=== PATIENT | female | born 1965 | race Caucasian/White ===

== ENCOUNTER 2020-03-06 15:14 | Outpatient (REF) | payer OTHER, SELFPAY ==
[2020-03-06 16:29] LABS: MANUAL DIFF FLAG NO
[2020-03-06 16:30] LABS: Basophils Absolute Auto 0.1 X10*3/uL (0.0-0.2); Basophils Percent Auto 1.2 % (0-2); Eosinophils Absolute Auto 0.4 X10*3/uL (0.0-0.4); Eosinophils Percent Auto 6.1 % (0-4); Hematocrit 45.8 % (37-47); Hemoglobin 15.1 g/dl (12.0-16.0); Imm Gran Abs Auto 0.02 X10*3/uL (0.00-0.03); Imm Gran Pct Auto 0.3 % (0.0-0.4); Lymphocytes Absolute Auto 1.4 X10*3/uL (1.2-4.9); Lymphocytes Percent Auto 23.8 % (20-40); Mean Corpuscular Hemoglobin 28.7 pg (27.0-33.0); Mean Corpuscular Volume 87.1 fL (80-98); Mean Platelet Volume 10.5 fL (9.4-12.3); Monocytes Absolute Auto 0.5 X10*3/uL (0.1-1.2); Monocytes Percent Auto 8.8 % (2-11); Neutrophils Absolute Auto 3.5 X10*3/uL (2.0-8.3); Neutrophils Percent Auto 59.8 % (45-73); Platelet Count 247 X10*3/uL (160-400); Red Blood Count 5.26 X10*6/uL (4.20-5.50); Red Cell Distribution Width 12.8 % (11.0-16.0); White Blood Count 5.9 X10*3/uL (4.8-10.8)
[2020-03-06 16:50] LABS: Alanine Aminotransferase 29 U/L (0-31); Albumin Level 4.7 g/dL (3.5-5.0); Alkaline Phosphatase 90 U/L (39-117); Anion Gap 11 (12-20); Aspartate Amino Transferase 23 U/L (5-31); Bilirubin Direct 0.3 mg/dL (0.0-0.5); Bilirubin Total 0.8 mg/dL (0.0-1.0); Blood Urea Nitrogen 15 mg/dL (9-16); Calcium 9.6 mg/dL (8.4-10.2); Carbon Dioxide 32 mmol/L (22-29); Chloride 102 mmol/L (96-108); Cholesterol 206 mg/dL; Estimated Glomerular Filt Rate > 60; Glucose Fasting 88 mg/dL (60-99); HDL Cholesterol 77 mg/dL; LDL Cholesterol Calculated 117 mg/dl; Potassium 4.3 mmol/l (3.3-5.1); Sodium 141 mmol/L (135-145); Total Protein 7.4 g/dL (6.5-8.0); Triglycerides 61 mg/dL
[2020-03-06 16:56] LABS: Amphetamine Screen Urine Not Detected (Not Detect); Barbiturates, Urine Not Detected (Not Detect); Benzodiazepines Screen Urine Not Detected (Not Detect); Cannabinoid Screen Urine Not Detected (Not Detect); Cocaine Screen Urine Not Detected (Not Detect); Opiate Screen Urine Not Detected (Not Detect); Phencyclidine Screen Urine Not Detected (Not Detect)
[2020-03-06 17:10] LABS: TSH reflex Free T4 0.76 mIU/mL (0.32-4.0)
== END 2020-03-06 15:15 | disposition home or self-care (01) ==
LOC: HO.HMGCLDS 15:14
PROVIDERS: PCP Internal Medicine; Visit Provider Internal Medicine
DX: B00.1 Herpesviral vesicular dermatitis (principal); F33.9 Major depressive disorder, recurrent, unspecified; G89.29 Other chronic pain; M54.5 Low back pain
CPT/HCPCS: 80048; 80061; 80076; 80307; 84443; 85025

== ENCOUNTER 2021-01-14 13:13 | Outpatient (REF) | payer OTHER, SELFPAY ==
[2021-01-14 14:13] LABS: MANUAL DIFF FLAG NO
[2021-01-14 14:17] LABS: Basophils Percent Auto 0.8 % (0-2); Eosinophils Absolute Auto 0.1 X10*3/uL (0.0-0.4); Eosinophils Percent Auto 2.9 % (0-4); Hematocrit 42.3 % (37.0-47.0); Hemoglobin 14.4 g/dl (12.0-16.0); Imm Gran Abs Auto 0.01 X10*3/uL (0.00-0.03); Imm Gran Pct Auto 0.2 % (0.0-0.4); Lymphocytes Absolute Auto 1.4 X10*3/uL (1.2-4.9); Mean Corpuscular Hemoglobin 29.1 pg (27.0-33.0); Mean Corpuscular Volume 85.6 fL (80.0-98.0); Mean Platelet Volume 10.7 fL (9.4-12.3); Monocytes Absolute Auto 0.5 X10*3/uL (0.1-1.2); Monocytes Percent Auto 10.3 % (2-11); Neutrophils Absolute Auto 2.8 x10*3/uL (2.0-8.3); Neutrophils Percent Auto 56.8 % (45-73); Platelet Count 251 X10*3/uL (160-400); Red Blood Count 4.94 X10*6/uL (4.20-5.50); Red Cell Distribution Width 12.6 % (11.0-16.0); White Blood Count 4.9 X10*3/uL (4.8-10.8)
[2021-01-14 14:52] LABS: Alanine Aminotransferase 33 U/L (0-31); Albumin Level 4.5 g/dL (3.5-5.0); Alkaline Phosphatase 92 U/L (39-117); Anion Gap 14 (12-20); Aspartate Amino Transferase 24 U/L (5-31); Bilirubin Total 0.7 mg/dL (0.0-1.0); Blood Urea Nitrogen 17 mg/dL (9-16); Calcium 9.7 mg/dL (8.4-10.2); Carbon Dioxide 26 mmol/L (22-29); Chloride 104 mmol/L (96-108); Cholesterol 221 mg/dL; Estimated Glomerular Filt Rate > 60; Glucose Fasting 87 mg/dL (60-99); HDL Cholesterol 64 mg/dL; LDL Cholesterol Calculated 144 mg/dl; Potassium 4.1 mmol/L (3.3-5.1); Sodium 140 mmol/L (135-145); Total Protein 7.2 g/dL (6.5-8.0); Triglycerides 67 mg/dL
[2021-01-14 15:14] LABS: TSH reflex Free T4 0.73 uIU/mL (0.32-4.0)
[2021-01-18 12:11] LABS: Vitamin D 25-OH, D2 <4 ng/mL; Vitamin D 25-OH, D3 56 ng/mL; Vitamin D 25-OH, Total 56 ng/mL (30-100)
== END 2021-01-14 13:14 | disposition home or self-care (01) ==
LOC: HO.HMGCLDS 13:13
PROVIDERS: PCP Internal Medicine; Visit Provider Internal Medicine
DX: Z00.01 Encounter for general adult medical examination with abnormal findings (principal); B00.1 Herpesviral vesicular dermatitis; F33.9 Major depressive disorder, recurrent, unspecified; F41.1 Generalized anxiety disorder; M54.50 Low back pain, unspecified
CPT/HCPCS: 36415; 80053; 80061; 82306; 84443; 85025

== ENCOUNTER 2022-02-03 15:38 | Outpatient (REF) | payer BC, SELFPAY ==
[2022-02-06 01:54] LABS: HPV mRNA E6/E7 rflx Not Detected (Not Detected)
== END 2022-02-03 15:39 | disposition home or self-care (01) ==
LOC: HO.LNP 15:38
PROVIDERS: Visit Provider Advanced Practice Midwife
DX: Z01.419 Encounter for gynecological examination (general) (routine) without abnormal findings (principal)
CPT/HCPCS: 87624; 88142

== ENCOUNTER 2022-08-21 10:31 | Outpatient (REF) | payer BC, SELFPAY | END 2022-08-21 10:32 | disposition home or self-care (01) | LOC: HO.HMGCLDS 10:31 | PROVIDERS: PCP Internal Medicine; Visit Provider Internal Medicine | DX: Z00.01 Encounter for general adult medical examination with abnormal findings (principal); F33.9 Major depressive disorder, recurrent, unspecified; M54.50 Low back pain, unspecified; G89.29 Other chronic pain; M62.830 Muscle spasm of back; F41.1 Generalized anxiety disorder | CPT/HCPCS: 36415; 80053; 80061; 85025 ==

== ENCOUNTER 2022-10-20 15:42 | Outpatient (AMB) | payer BC, SELFPAY ==
--- NOTE | 2022-10-20 15:45 | A.OFFPC_ITS ---
Vital Signs 10/20/22 15:46 Height 5 ft 6 in Weight 144 lb BMI 23.2 BP 140/100 H Blood Pressure Location Rt brachial Position Sitting Pulse 72 Pulse Source Pulse Oximeter Pulse Oximetry (%) 98 Oxygen Delivery Method Room Air Intake Visit Reasons: 3m follow up med review Allergies Penicillins [PENICILLINS] Allergy (Mild, Verified 10/20/22 15:46) Unknown penicillin V Allergy (Unknown, Verified 10/20/22 15:46) unknown - childhood Medication List - Last Reconciled 10/20/22 by Aldair Sanchez MD ferrous sulfate (Feosol) 325 mg PO DAILY tramadol 50 mg PO Q6H 90 days valacyclovir 500 mg PO DAILY Tobacco use date assessed: 08/04/22 HPI 3m follow up med review HPI Details Patient is 57-year-old female came in today for her regular follow-up appointment Patient's depression screening score is very high She says that she feels more anxious than depressed she has tried few medications which had helped her but she stopped them because of side effects I am starting her on buspirone 5 mg patient may take that as needed if she is struggling with her day due to anxiety Up but ideally patient should see a specialist for her depression and anxiety as well. Patient is on tramadol 50 mg q.6 for chronic lumbar pain. Patient is doing well and complying with the treatment plan. Patient have valacyclovir script for cold sore and herpes genitalia but really uses it Her blood pressure is 140/100 I see that it was high January of last year as well. Patient is reluctant to start the medication She has blood pressure monitor at home she will start monitoring, and if it gives most of the readings above 140 patient is to let me know so we can start medication Otherwise bring the blood pressure monitor from home as well as blood pressure log at her upcoming visit in January when she will come for physical exam. She is taking iron supplement on her own however I do not see any deficiency signs in the labs her hemoglobin is normal. [facility] Medical History Anxiety, generalized Back muscle spasm Back pain Chronic lumbar pain Depression, major, recurrent Herpes labialis Pain management Surgical History History of breast augmentation Family History Father No problems noted. Mother Breast cancer Maternal Grandfather Diabetes mellitus Maternal Grandmother No problems noted. Paternal Grandfather No problems noted. Paternal Grandmother No problems noted. Brother No problems noted. Brother No problems noted. Brother No problems noted. Brother No problems noted. Daughter No problems noted. Maternal Aunt Breast cancer Other Mental health disorder Substance use disorder Social History Housing: House Patient Tobacco Use Status: Never used Tobacco e-Cigarette/Vaping Use: Never Used service: No Current occupational status: employed Cognitive needs: No Hearing needs: No Vision needs: Yes Female Reproductive History Menstrual Age of Menarche: 14 Questionnaire PHQ-9 Over the last 2 weeks, how often have you been bothered by any of the following problems? 1. Little interest or pleasure in doing things: more than half the days 2. Feeling down, depressed, or hopeless: more than half the days 3. Trouble falling or staying asleep, or sleeping too much: more than half the days 4. Feeling tired or having little energy: nearly every day 5. Poor appetite or overeating: more than half the days 6. Feeling bad about yourself - or that you are a failure or have let yourself or your family down: not at all 7. Trouble concentrating on things, such as reading the newspaper or watching television: several days 8. Moving or speaking so slowly that other people could have noticed. Or the opposite - being so fidgety or restless that you have been moving around a lot more than usual: not at all 9. Thoughts that you would be better off or of hurting yourself in some way: not at all Total score: 12 Depression Screening Interpretation: Positive 10265 - PHQ-9 Billing: Yes Source: Developed by Drs. Andrea Bernstein, Marilee Robles, Adriel Meyer and colleagues, with an educational lisa from [employer]. Thrive Questionnaire Date Thrive assessed: 01/22/22 I am a: Patient What is your living situation today?: I have a steady place to live Within the past 12 months, did the food you bought not last and you didn't have the money to get more?: Sometimes True Within the past 12 months, did you worry whether your food would run out before you got money to buy more?: Sometimes True AUDIT C Alcohol Use Questionnaire (AUDIT-C) 1. How often do you have a drink containing alcohol?: Never 3. How often do you have six or more drinks on one occasion?: Never Total Score: 0 RAFFAELE-7 AMB Questionnaire RAFFAELE-7 Date RAFFAELE - 7 assessed: 08/04/22 Feeling nervous, anxious, or on edge: 3 = Nearly every day Not being able to stop or control worryin = More than half the days Worrying too much about different things: 2 = More than half the days Trouble relaxin = More than half the days Being so restless that it is hard to sit still: 0 = Not at all Becoming easily annoyed or irritable: 2 = More than half the days Feeling afraid as if something awful might happen: 0 = Not at all Total RAFFAELE-7 score (0-4 normal; 5-9 mild; 10-14 moderate; 15-21 severe): 11 Source: Developed by Drs. Andrea Bernstein, Marilee Robles, Adriel Meyer and colleagues, with an educational lisa from [employer]. Review of Systems Const Denies chills and Denies fever(s) ENT Denies epistaxis and Denies nasal discharge Card Denies chest pain Resp Denies chest congestion, Denies cough and Denies hemoptysis GI Denies diarrhea and Denies nausea Skin/Breast Denies rash Neuro Reports no additional complaints Psych Reports no additional complaints Endo Reports no additional complaints Physical exam (Primary Care) Vital Signs: Last Vital Signs Pulse 72 10/20/22 15:46 BP 140/100 H 10/20/22 15:46 Pulse Ox 98 10/20/22 15:46 Oxygen Delivery Method Room Air 10/20/22 15:46 BMI result Body Mass Index 23.2 Tobacco/Smoking Status: Tobacco use Status Tobacco use date assessed 08/04/22 10/20/22 15:46 Patient Tobacco Use Status Never used Tobacco 10/20/22 15:46 e-Cigarette/Vaping Use Never Used 10/20/22 15:46 Depression Screening Interpretation: Positive Thrive Assessment: Date of Thrive Assessment Date Thrive assessed 01/22/22 10/20/22 15:46 Const General: cooperative, comfortable and no acute distress Orientation/consciousness: patient oriented x3 HENMT Head: Yes normocephalic Eyes General: appearance normal, both eyes and all related structures Neck Neck: Yes supple Resp Effort & Inspection: normal respiratory effort, no cough and no stridor Cardio Rhythm: regular rhythm Heart sounds: S1 normal heart sound present and S2 normal heart sound present Skin General skin exam: turgor normal Neuro General: patient oriented x3, tone normal and moves all extremities Extrem Right lower extremity: no edema Left lower extremity: no edema Assessment and Plan Assessment & Plan (1) Chronic lumbar pain: Code(s): M54.5 - Low back pain; G89.29 - Other chronic pain Qualifiers: Back pain laterality: bilateral Sciatica presence: without sciatica Qualified Code(s): M54.50 - Low back pain, unspecified; G89.29 - Other chronic pain (2) Anxiety, generalized: Code(s): F41.1 - Generalized anxiety disorder (3) Herpes labialis: Code(s): B00.1 - Herpesviral vesicular dermatitis (4) Depression, major, recurrent: Code(s): F33.9 - Major depressive disorder, recurrent, unspecified Qualifiers: Active/Remission status: currently active Major depression episode severity: moderate Qualified Code(s): F33.1 - Major depressive disorder, recurrent, moderate (5) Pain management: Code(s): R52 - Pain, unspecified (6) Elevated blood pressure reading: Code(s): R03.0 - Elevated blood-pressure reading, without diagnosis of hypertension Plan Patient is 57-year-old female came in today for her regular follow-up appointment Patient's depression screening score is very high She says that she feels more anxious than depressed she has tried few medications which had helped her but she stopped them because of side effects I am starting her on buspirone 5 mg patient may take that as needed if she is struggling with her day due to anxiety Up but ideally patient should see a specialist for her depression and anxiety as well. Patient is on tramadol 50 mg q.6 for chronic lumbar pain. Patient is doing well and complying with the treatment plan. Patient have valacyclovir script for cold sore and herpes genitalia but really uses it Her blood pressure is 140/100 I see that it was high January of last year as well. Patient is reluctant to start the medication She has blood pressure monitor at home she will start monitoring, and if it gives most of the readings above 140 patient is to let me know so we can start medication Otherwise bring the blood pressure monitor from home as well as blood pressure log at her upcoming visit in January when she will come for physical exam. She is taking iron supplement on her own however I do not see any deficiency signs in the labs her hemoglobin is normal. Medications: New buspirone 5 mg PO .q am 30 days PRN 30 tabs 0RF anxiety Refilled tramadol 50 mg PO Q6H 90 days 360 tabs 0RF Coding Level of Care Code Est Pt Level 4 (56083) Diagnoses Chronic lumbar pain M54.50; G89.29 Back pain laterality: bilateral Sciatica presence: without sciatica Anxiety, generalized F41.1 Herpes labialis B00.1 Depression, major, recurrent F33.1 Active/Remission status: currently active Major depression episode severity: moderate Pain management R52 Elevated blood pressure reading R03.0
[2022-10-20 15:46] VITALS: BP 140/100; PULSE 72; O2SAT 98; BMI 23.2
== END 2022-10-20 16:13 | disposition home or self-care (01) ==
PROVIDERS: PCP Internal Medicine; Visit Provider Internal Medicine
DX: M54.50 Low back pain, unspecified (principal); F33.1 Major depressive disorder, recurrent, moderate; F41.1 Generalized anxiety disorder; B00.1 Herpesviral vesicular dermatitis; R03.0 Elevated blood-pressure reading, without diagnosis of hypertension
CPT/HCPCS: 99214

== ENCOUNTER 2023-01-28 14:13 | Outpatient (AMB) | payer BC, SELFPAY ==
--- NOTE | 2023-01-28 14:28 | A.OFFPC_ITS ---
Vital Signs 01/28/23 14:29 Height 5 ft 6 in Weight 143 lb BMI 23.1 BP 120/82 Blood Pressure Location Rt brachial Position Sitting Pulse 88 Pulse Source Pulse Oximeter Pulse Oximetry (%) 96 Oxygen Delivery Method Room Air Intake Visit Reasons: Annual PE Allergies Penicillins [PENICILLINS] Allergy (Mild, Verified 01/28/23 14:30) Unknown penicillin V Allergy (Unknown, Verified 01/28/23 14:30) unknown - childhood Medication List - Last Reconciled 01/28/23 by Aldair Sanchez MD buspirone 5 mg PO .q am PRN 30 days ferrous sulfate (Feosol) 325 mg PO DAILY tramadol 50 mg PO Q6H 90 days valacyclovir 500 mg PO DAILY Tobacco use date assessed: 01/28/23 Dental Screening Dental Screen Date: 01/28/23 Did you have a dental visit in the last 12 months?: No Was dental information given to patient?: No HPI Annual PE HPI Details Patient is a 57-year-old female came in today for physical examination Patient have OBGYN, last appointment was January of last year patient says that she has appointment in spring Does not want mammogram Does not want a colonoscopy Breast exam declined today Patient would like to skip blood work this visit Tramadol refill sent [facility] Medical History Pain management Depression, major, recurrent Back muscle spasm Chronic lumbar pain Herpes labialis Anxiety, generalized Back pain Surgical History History of breast augmentation Family History Father No problems noted. Mother Breast cancer Maternal Grandfather Diabetes mellitus Maternal Grandmother No problems noted. Paternal Grandfather No problems noted. Paternal Grandmother No problems noted. Brother No problems noted. Brother No problems noted. Brother No problems noted. Brother No problems noted. Daughter No problems noted. Maternal Aunt Breast cancer Other Mental health disorder Substance use disorder Social History Housing: House Patient Tobacco Use Status: Never used Tobacco e-Cigarette/Vaping Use: Never Used service: No Current occupational status: employed Cognitive needs: No Hearing needs: No Vision needs: Yes Female Reproductive History Menstrual Age of Menarche: 14 Questionnaire PHQ-9 Over the last 2 weeks, how often have you been bothered by any of the following problems? 1. Little interest or pleasure in doing things: not at all 2. Feeling down, depressed, or hopeless: not at all 3. Trouble falling or staying asleep, or sleeping too much: not at all 4. Feeling tired or having little energy: not at all 5. Poor appetite or overeating: not at all 6. Feeling bad about yourself - or that you are a failure or have let yourself or your family down: not at all 7. Trouble concentrating on things, such as reading the newspaper or watching television: not at all 8. Moving or speaking so slowly that other people could have noticed. Or the opposite - being so fidgety or restless that you have been moving around a lot more than usual: not at all 9. Thoughts that you would be better off or of hurting yourself in some way: not at all Total score: 0 Depression Screening Interpretation: Negative Depression Screening Done: Yes 57232 - PHQ-9 Billing: Yes Source: Developed by Drs. Andrea Bernstein, Marilee Robles, Adriel Meyer and colleagues, with an educational lisa from [employer]. Thrive Questionnaire Date Thrive assessed: 01/28/23 I am a: Patient What is your living situation today?: I have a steady place to live Within the past 12 months, did the food you bought not last and you didn't have the money to get more?: Never true Within the past 12 months, did you worry whether your food would run out before you got money to buy more?: Never true Do you have trouble paying for medicines?: No Do you have trouble getting transportation to medical appointments?: No Do you have trouble paying your heating and electricity bill?: No Do you have trouble taking care of your child, family member or friend?: No Do you have trouble with day-to-day activities such as bathing, preparing meals, shopping, managing finances, etc.?: No Are you currently unemployed and looking for a job?: No Are you interested in more education?: No Please select the resources that you would like help with: None Currently or been in a relationship where the following occur: no concerns reported AUDIT C Alcohol Use Questionnaire (AUDIT-C) 1. How often do you have a drink containing alcohol?: Never Total Score: 0 RAFFAELE-7 AMB Questionnaire RAFFAELE-7 Date RAFFAELE - 7 assessed: 01/28/23 Feeling nervous, anxious, or on edge: 0 = Not at all Not being able to stop or control worryin = Not at all Worrying too much about different things: 0 = Not at all Trouble relaxin = Not at all Being so restless that it is hard to sit still: 0 = Not at all Becoming easily annoyed or irritable: 0 = Not at all Feeling afraid as if something awful might happen: 0 = Not at all Total RAFFAELE-7 score (0-4 normal; 5-9 mild; 10-14 moderate; 15-21 severe): 0 Source: Developed by Drs. Andrea Bernstein, Marilee Robles, Adriel Meyer and colleagues, with an educational lisa from [employer]. RAFFAELE-7 Assessment Billing RAFFAELE-7 Assessment Tool: RAFFAELE-7 Assessment 54055 Review of Systems Const Denies chills, Denies fever(s) and Denies headache(s) Eyes Denies blurry vision ENT Denies headache(s), Denies nasal discharge, Denies nasal obstruction, Denies odynophagia and Denies sinus pain Card Denies chest pain at rest and Denies chest pain with activity Resp Denies cough and Denies hemoptysis GI Denies diarrhea, Denies odynophagia, Denies vomiting and Denies hematemesis Reports as per HPI Musc Denies abnormal gait Skin/Breast Reports as per HPI Neuro Denies Neuro-related abnormal movements, Denies Abnormal speech present, Denies abnormal gait, Denies headache(s) and Denies Sensory deficit (Neuro) Psych Denies mood swings and Denies paranoia Endo Reports as per HPI Markus/Lymph Reports as per HPI Aller/Immun Reports as per HPI Physical exam (Primary Care) Vital Signs: Last Vital Signs Pulse 88 01/28/23 14:29 BP 120/82 01/28/23 14:29 Pulse Ox 96 01/28/23 14:29 Oxygen Delivery Method Room Air 01/28/23 14:29 BMI result Body Mass Index 23.1 Tobacco/Smoking Status: Tobacco use Status Tobacco use date assessed 01/28/23 01/28/23 14:30 Patient Tobacco Use Status Never used Tobacco 01/28/23 14:30 e-Cigarette/Vaping Use Never Used 01/28/23 14:30 PHQ-9: PHQ-9 Score PHQ-9: Total score 0 01/28/23 14:55 Depression Screening Interpretation: Negative Thrive Assessment: Date of Thrive Assessment Date Thrive assessed 01/28/23 01/28/23 14:33 Currently or been in a relationship where the following occur: no concerns reported Const General: cooperative, comfortable and no acute distress Orientation/consciousness: patient oriented x3 HENMT Head: Yes normocephalic and Yes atraumatic Eyes General: appearance normal, both eyes and all related structures Pupils: Equal, round and reactive pupils present EOM: EOMs intact bilaterally Neck Neck: Yes supple and No lymphadenopathy Thyroid: Thyroid normal Lymphatic: no lymphadenopathy noted Resp Effort & Inspection: normal respiratory effort and able to speak in complete sentences Auscultation: clear to auscultation bilaterally Cardio Heart sounds: S1 normal heart sound present and S2 normal heart sound present GI Palpation (GI): Soft to palpation and nontender Auscultation: normal bowel sounds General: Yes no CVA tenderness Back/Spine/Pelvis Back: no CVA tenderness Skin General skin exam: elasticity normal and turgor normal Neuro General: patient oriented x3 and gait normal Cranial nerves: Yes Equal, round and reactive pupils present Speech: No Abnormal speech present Sensory Exam: No Sensory deficit (Neuro) Coordination: tandem gait normal and Romberg test negative Extrem General: Yes normal exam except as noted and No edema Office Procedures Flu Questionnaire Does the patient have a severe egg allergy?: No Does the patient have severe life threatening allergies?: No Does the patient have a fever or illness today?: No Has the patient ever had Guillain-[place] Syndrome?: No Has the patient ever had any past reaction to a flu shot?: No Immunizations flu vacc [id number] 6mos up(PF) 60 mcg(15 mcgx4)/0.5 mL IM syringe Performing Provider: Aldair Sanchez MD Performing Location: [facility] [place] [facility] Administered by: Allan Vasques CMA on 01/28/23 14:55 Dose Route Admin Location Dispensed Lot Number Expiration Date NDC Seasonal Driver 0.5 mL IM Left Deltoid 0.5 mL [id number] 08/21/23 [id number] [employer] VIS Given Date VIS Provided VIS Publication Date 01/28/23 Single Vaccine 20 Eligibility Eligibility Date Funding Source Not [facility] Eligible 01/28/23 Private Assessment and Plan Assessment & Plan (1) Encounter for general adult medical examination with abnormal findings: Code(s): Z00.01 - Encounter for general adult medical examination with abnormal findings (2) Moderate tramadol dependence: Code(s): F11.20 - Opioid dependence, uncomplicated (3) Pain management: Code(s): R52 - Pain, unspecified (4) Chronic lumbar pain: Code(s): M54.5 - Low back pain; G89.29 - Other chronic pain Qualifiers: Back pain laterality: bilateral Sciatica presence: without sciatica Qualified Code(s): M54.50 - Low back pain, unspecified; G89.29 - Other chronic pain (5) Herpes labialis: Code(s): B00.1 - Herpesviral vesicular dermatitis (6) Colonoscopy refused: Code(s): Z53.20 - Procedure and treatment not carried out because of patient's decision for unspecified reasons Plan Patient is a 57-year-old female came in today for physical examination Patient have OBGYN, last appointment was January of last year patient says that she has appointment in spring Does not want mammogram Does not want a colonoscopy Breast exam declined today Patient would like to skip blood work this visit Tramadol refill sent Orders: Orders Influenza [id number] Immunization Today Z23 - Encounter for immunization Medications: Refilled tramadol 50 mg PO Q6H 360 tabs 0RF 90 days Coding Level of Care Code Est Pt Prev Care 40-64y(85716) Diagnoses Encounter for general adult medical examination with abnormal findings Z00.01 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 Pain management R52 Chronic bilateral low back pain without sciatica M54.50; G89.29 Back pain laterality: bilateral Sciatica presence: without sciatica Herpes labialis B00.1 Colonoscopy refused Z53.20 Additional Codes RAFFAELE-7 Assessment Billing - RAFFAELE-7 Assessment Tool: RAFFAELE-7 Assessment [id number] ([id number])
[2023-01-28 14:29] VITALS: BP 120/82; PULSE 88; O2SAT 96; BMI 23.1
== END 2023-01-28 15:04 | disposition home or self-care (01) ==
PROVIDERS: Visit Provider Internal Medicine
DX: Z00.00 Encounter for general adult medical examination without abnormal findings (principal); F11.20 Opioid dependence, uncomplicated; Z23 Encounter for immunization; M54.50 Low back pain, unspecified; G89.29 Other chronic pain; B00.1 Herpesviral vesicular dermatitis; Z53.20 Procedure and treatment not carried out because of patient's decision for unspecified reasons
CPT/HCPCS: 90471; 90686; 99396

== ENCOUNTER 2023-05-12 08:41 | Outpatient (AMB) | payer BC, SELFPAY ==
--- NOTE | 2023-05-12 09:49 | MHC.PC.OV ---
Intake Visit Reasons: 3 mth follow up Allergies Penicillins [PENICILLINS] Allergy (Mild, Verified 01/28/23 14:30) Unknown penicillin V Allergy (Unknown, Verified 01/28/23 14:30) unknown - childhood Medication List - Last Reconciled 05/12/23 by Aldair Sanchez MD buspirone 5 mg PO .q am PRN 30 days ferrous sulfate (Feosol) 325 mg PO DAILY tramadol 50 mg PO Q6H 90 days valacyclovir 500 mg PO DAILY Tobacco use date assessed: 01/28/23 HPI 3 mth follow up HPI Details Patient is a 57-year-old female with a history of lumbar radiculitis, this is a telemedicine video conference Patient usually get tramadol 360 tablets every 90 days, she is taking 1 tablet every 6 hour as needed And for anxiety buspirone, both medication refill sent 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 For the past few days she has developed pain lower back and left hip which is causing problem with sleep at night as well. Patient already have a disc protrusion lumbar area, and in October she did some weakness exercises doing squatting and some weightlifting. At that time she did not had any problem . I have ordered x-ray of her lumbar spine and hip. Meanwhile I would recommend to get a computer table and stand up part of the time while she is working or standing. If symptoms gets worse patient is to get in touch with me There are no bowel or bladder issues. But left leg paresthesias is there. [facility] Medical History Pain management Depression, major, recurrent Back muscle spasm Chronic lumbar pain Herpes labialis Anxiety, generalized Back pain Surgical History History of breast augmentation Family History Father No problems noted. Mother Breast cancer Maternal Grandfather Diabetes mellitus Maternal Grandmother No problems noted. Paternal Grandfather No problems noted. Paternal Grandmother No problems noted. Brother No problems noted. Brother No problems noted. Brother No problems noted. Brother No problems noted. Daughter No problems noted. Maternal Aunt Breast cancer Other Mental health disorder Substance use disorder Social History Housing: House Patient Tobacco Use Status: Never used Tobacco e-Cigarette/Vaping Use: Never Used service: No Current occupational status: employed Cognitive needs: No Hearing needs: No Vision needs: Yes Female Reproductive History Menstrual Age of Menarche: 14 Questionnaire Thrive Questionnaire Date Thrive assessed: 01/28/23 RAFFAELE-7 AMB Questionnaire RAFFAELE-7 Date RAFFAELE - 7 assessed: 01/28/23 Source: Developed by Drs. Andrea Bernstein, Marilee Robles, Adriel Meyer and colleagues, with an educational lisa from [employer]. Review of Systems Const Denies chills and Denies fever(s) ENT Denies epistaxis and Denies nasal discharge Card Denies chest pain Resp Denies chest congestion, Denies cough and Denies hemoptysis GI Denies diarrhea and Denies nausea Skin/Breast Denies rash Neuro Reports no additional complaints Psych Reports no additional complaints Endo Reports no additional complaints Physical exam (Primary Care) Tobacco/Smoking Status: Tobacco use Status Tobacco use date assessed 01/28/23 01/28/23 14:30 Patient Tobacco Use Status Never used Tobacco 01/28/23 14:30 e-Cigarette/Vaping Use Never Used 01/28/23 14:30 Thrive Assessment: Date of Thrive Assessment Date Thrive assessed 01/28/23 01/28/23 14:33 Telehealth Telehealth Location of provider rendering services: practice address Location of patient: address on file Patient Identification confirmed using: Name, : Yes Telehealth method: video Patient verbally consented to treatment: Yes Patient verbally consented to billing insurance company: Yes Patient informed of any privacy concerns related to visit: Yes Minutes spent on Phone/Video with Pt.: 16 Assessment and Plan Assessment & Plan (1) Left lumbar radiculitis: Code(s): M54.16 - Radiculopathy, lumbar region (2) Pain in left hip: Code(s): M25.552 - Pain in left hip (3) Anxiety, generalized: Code(s): F41.1 - Generalized anxiety disorder Plan Patient is a 57-year-old female with a history of lumbar radiculitis, this is a telemedicine video conference Patient usually get tramadol 360 tablets every 90 days, she is taking 1 tablet every 6 hour as needed And for anxiety buspirone, both medication refill sent 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 For the past few days she has developed pain lower back and left hip which is causing problem with sleep at night as well. Patient already have a disc protrusion lumbar area, and in October she did some weakness exercises doing squatting and some weightlifting. At that time she did not had any problem . I have ordered x-ray of her lumbar spine and hip. Meanwhile I would recommend to get a computer table and stand up part of the time while she is working or standing. If symptoms gets worse patient is to get in touch with me There are no bowel or bladder issues. But left leg paresthesias is there. Orders: Orders XR lumbar spine 2-3V Today M54.16 - Radiculopathy, lumbar region XR hip LT min 2V Today M25.552 - Pain in left hip Medications: Refilled buspirone 5 mg PO .q am 30 days PRN 30 tabs 0RF anxiety tramadol 50 mg PO Q6H 90 days 360 tabs 0RF Coding Level of Care Code Tele Est Pt Level 3 (22558) Diagnoses Left lumbar radiculitis M54.16 Pain in left hip M25.552 Anxiety, generalized F41.1
== END 2023-05-12 11:20 | disposition home or self-care (01) ==
LOC: HO.HMGC 08:41
PROVIDERS: PCP Internal Medicine; Visit Provider Internal Medicine
DX: M54.16 Radiculopathy, lumbar region (principal); M25.552 Pain in left hip; F41.1 Generalized anxiety disorder
CPT/HCPCS: 99213

== ENCOUNTER 2023-08-05 13:51 | Outpatient (AMB) | payer BC, SELFPAY ==
--- NOTE | 2023-08-05 14:00 | A.OFFPC_ITS ---
Vital Signs 08/05/23 14:02 Height 5 ft 6 in Weight 154 lb BMI 24.9 BP 120/80 Blood Pressure Location Lt brachial Position Sitting Pulse 67 Pulse Source Pulse Oximeter Pulse Oximetry (%) 98 Oxygen Delivery Method Room Air Intake Visit Reasons: 6 Month F/U Allergies Penicillins [PENICILLINS] Allergy (Mild, Verified 08/05/23 14:02) Unknown penicillin V Allergy (Unknown, Verified 08/05/23 14:02) unknown - childhood Medication List - Last Reconciled 08/05/23 by Aldair Sanchez MD buspirone 5 mg PO .q am PRN 30 days ferrous sulfate (Feosol) 325 mg PO DAILY tramadol 50 mg PO Q6H 90 days valacyclovir 500 mg PO DAILY Tobacco use date assessed: 08/05/23 Dental Screening Dental Screen Date: 08/05/23 Did you have a dental visit in the last 12 months?: No Did you have a dental problem in the last 6 months where you did not have access to dental care?: No Was dental information given to patient?: Patient has dentist HPI 6 Month F/U HPI Details Patient is a 58-year-old female with a history of lumbar radiculitis, and chronic anxiety Patient usually get tramadol 360 tablets every 90 days, she is taking 1 tablet every 6 hour as needed, refill sent Valacyclovir refill also provided for recurrent cold sores Anxiety disorder: Continue buspirone, as needed Patient have a disc protrusion lumbar area Next visit in 3 months will be telemedicine And then she has a physical exam in January Last set of lab reviewed Patient is stable at this time she is to continue medications as prescribed. [facility] Medical History Pain management Depression, major, recurrent Back muscle spasm Chronic lumbar pain Herpes labialis Anxiety, generalized Back pain Surgical History History of breast augmentation Family History Father No problems noted. Mother Breast cancer Maternal Grandfather Diabetes mellitus Maternal Grandmother No problems noted. Paternal Grandfather No problems noted. Paternal Grandmother No problems noted. Brother No problems noted. Brother No problems noted. Brother No problems noted. Brother No problems noted. Daughter No problems noted. Maternal Aunt Breast cancer Other Mental health disorder Substance use disorder Social History Housing: House Patient Tobacco Use Status: Never used Tobacco e-Cigarette/Vaping Use: Never Used service: No Current occupational status: employed Cognitive needs: No Hearing needs: No Vision needs: Yes Female Reproductive History Menstrual Age of Menarche: 14 Questionnaire PHQ-9 Over the last 2 weeks, how often have you been bothered by any of the following problems? 1. Little interest or pleasure in doing things: several days 2. Feeling down, depressed, or hopeless: several days 3. Trouble falling or staying asleep, or sleeping too much: several days 4. Feeling tired or having little energy: several days 5. Poor appetite or overeating: not at all 6. Feeling bad about yourself - or that you are a failure or have let yourself or your family down: not at all 7. Trouble concentrating on things, such as reading the newspaper or watching television: not at all 8. Moving or speaking so slowly that other people could have noticed. Or the opposite - being so fidgety or restless that you have been moving around a lot more than usual: not at all 9. Thoughts that you would be better off or of hurting yourself in some way: not at all Total score: 4 Depression Screening Interpretation: Negative Depression Screening Done: Yes 03407 - PHQ-9 Billing: Yes Source: Developed by Drs. Andrea Bernstein, Marilee Robles, Adriel Meyer and colleagues, with an educational lisa from [employer]. Thrive Questionnaire Date Thrive assessed: 08/05/23 I am a: Patient What is your living situation today?: I have a steady place to live Within the past 12 months, did the food you bought not last and you didn't have the money to get more?: Never true Within the past 12 months, did you worry whether your food would run out before you got money to buy more?: Never true Do you have trouble paying for medicines?: No Do you have trouble getting transportation to medical appointments?: No Do you have trouble paying your heating and electricity bill?: No Do you have trouble taking care of your child, family member or friend?: No Do you have trouble with day-to-day activities such as bathing, preparing meals, shopping, managing finances, etc.?: No Are you currently unemployed and looking for a job?: No Are you interested in more education?: No Currently or been in a relationship where the following occur: no concerns reported and I choose not to answer this question THRIVE Score: 0 AUDIT C Alcohol Use Questionnaire (AUDIT-C) 1. How often do you have a drink containing alcohol?: Never 3. How often do you have six or more drinks on one occasion?: Never Total Score: 0 Score Reviewed/Action Taken: No RAFFAELE-7 AMB Questionnaire RAFFAELE-7 Date RAFFAELE - 7 assessed: 08/05/23 Feeling nervous, anxious, or on edge: 1 = Several days Not being able to stop or control worryin = Not at all Worrying too much about different things: 0 = Not at all Trouble relaxin = Not at all Being so restless that it is hard to sit still: 0 = Not at all Becoming easily annoyed or irritable: 0 = Not at all Feeling afraid as if something awful might happen: 0 = Not at all Total RAFFAELE-7 score (0-4 normal; 5-9 mild; 10-14 moderate; 15-21 severe): 1 Source: Developed by Drs. Andrea Bernstein, Marilee Robles, Adriel Meyer and colleagues, with an educational lisa from [employer]. RAFFAELE-7 Assessment Billing RAFFAELE-7 Assessment Tool: RAFFAELE-7 Assessment 14750 Review of Systems Const Denies chills and Denies fever(s) ENT Denies epistaxis and Denies nasal discharge Card Denies chest pain Resp Denies chest congestion, Denies cough and Denies hemoptysis GI Denies diarrhea and Denies nausea Skin/Breast Denies rash Neuro Reports no additional complaints Psych Reports no additional complaints Endo Reports no additional complaints Physical exam (Primary Care) Vital Signs: Last Vital Signs Pulse 67 08/05/23 14:02 BP 120/80 08/05/23 14:02 Pulse Ox 98 08/05/23 14:02 Oxygen Delivery Method Room Air 08/05/23 14:02 BMI result Body Mass Index 24.9 Tobacco/Smoking Status: Tobacco use Status Tobacco use date assessed 08/05/23 08/05/23 14:04 Patient Tobacco Use Status Never used Tobacco 08/05/23 14:01 e-Cigarette/Vaping Use Never Used 08/05/23 14:01 PHQ-9: PHQ-9 Score PHQ-9: Total score 4 08/05/23 14:23 Depression Screening Interpretation: Negative Thrive Assessment: Date of Thrive Assessment Date Thrive assessed 08/05/23 08/05/23 14:22 Currently or been in a relationship where the following occur: no concerns reported and I choose not to answer this question Const General: cooperative, comfortable and no acute distress Orientation/consciousness: patient oriented x3 HENMT Head: Yes normocephalic Eyes General: appearance normal, both eyes and all related structures Neck Neck: Yes supple Resp Effort & Inspection: normal respiratory effort, no cough and no stridor Cardio Rhythm: regular rhythm Heart sounds: S1 normal heart sound present and S2 normal heart sound present Skin General skin exam: turgor normal Neuro General: patient oriented x3, tone normal and moves all extremities Extrem Right lower extremity: no edema Left lower extremity: no edema Assessment and Plan Assessment & Plan (1) Left lumbar radiculitis: Code(s): M54.16 - Radiculopathy, lumbar region (2) Pain in left hip: Code(s): M25.552 - Pain in left hip (3) Anxiety, generalized: Code(s): F41.1 - Generalized anxiety disorder (4) Herpes labialis: Code(s): B00.1 - Herpesviral vesicular dermatitis Plan Patient is a 58-year-old female with a history of lumbar radiculitis, and chronic anxiety Patient usually get tramadol 360 tablets every 90 days, she is taking 1 tablet every 6 hour as needed, refill sent Valacyclovir refill also provided for recurrent cold sores Anxiety disorder: Continue buspirone, as needed Patient have a disc protrusion lumbar area Next visit in 3 months will be telemedicine And then she has a physical exam in January Last set of lab reviewed Patient is stable at this time she is to continue medications as prescribed. Medications: New valacyclovir 500 mg PO DAILY 90 tabs 0RF Refilled tramadol 50 mg PO Q6H 360 tabs 0RF 90 days Coding Level of Care Code Est Pt Level 3 (26449) Diagnoses Left lumbar radiculitis M54.16 Pain in left hip M25.552 Anxiety, generalized F41.1 Herpes labialis B00.1 Additional Codes RAFFAELE-7 Assessment Billing - RAFFAELE-7 Assessment Tool: RAFFAELE-7 Assessment 02148 ([id number])
[2023-08-05 14:02] VITALS: BP 120/80; PULSE 67; O2SAT 98; BMI 24.9
== END 2023-08-05 14:44 | disposition home or self-care (01) ==
PROVIDERS: PCP Internal Medicine; Visit Provider Internal Medicine
DX: M54.16 Radiculopathy, lumbar region (principal); M25.552 Pain in left hip; F41.1 Generalized anxiety disorder; B00.1 Herpesviral vesicular dermatitis
CPT/HCPCS: 99213

== ENCOUNTER 2023-11-03 08:28 | Outpatient (AMB) | payer BC, SELFPAY ==
--- NOTE | 2023-11-03 08:58 | A.OFFPC_ITS ---
Intake Visit Reasons: 9 Month F/U Telehealth Allergies No Known Allergies Allergy (Verified 11/04/23 07:57) Medication List - Last Reconciled 11/03/23 by Aldair Sanchez MD buspirone 5 mg PO .q am PRN 30 days ferrous sulfate (Feosol) 325 mg PO DAILY tramadol 50 mg PO Q6H 90 days valacyclovir 500 mg PO DAILY Tobacco use date assessed: 08/05/23 Dental Screening Dental Screen Date: 08/05/23 HPI 9 Month F/U Telehealth HPI Details Patient is a 58-year-old female with a history of lumbar radiculitis, and chronic anxiety Patient have a disc protrusion lumbar area Patient gets tramadol 360 tablets every 90 days, she is taking 1 tablet every 6 hour as needed, refill sent Anxiety disorder: Patient wants to be switched to Lexapro, she was taking it in the past Patient says that the buspirone is not helping her anymore. Lexapro 10 mg tablets sent Patient is to take half a tablet for a week and then full tablet PFSH Medical History Pain management Depression, major, recurrent Back muscle spasm Chronic lumbar pain Herpes labialis Anxiety, generalized Back pain Surgical History History of breast augmentation Family History Father No problems noted. Mother Breast cancer Maternal Grandfather Diabetes mellitus Maternal Grandmother No problems noted. Paternal Grandfather No problems noted. Paternal Grandmother No problems noted. Brother No problems noted. Brother No problems noted. Brother No problems noted. Brother No problems noted. Daughter No problems noted. Maternal Aunt Breast cancer Other Mental health disorder Substance use disorder Social History Housing: House Patient Tobacco Use Status: Never used Tobacco e-Cigarette/Vaping Use: Never Used service: No Current occupational status: employed Cognitive needs: No Hearing needs: No Vision needs: Yes Female Reproductive History Menstrual Age of Menarche: 14 Questionnaire Thrive Questionnaire Date Thrive assessed: 08/05/23 RAFFAELE-7 AMB Questionnaire RAFFAELE-7 Date RAFFAELE - 7 assessed: 08/05/23 Source: Developed by Drs. Andrea Bernstein, Marilee Robles, Adriel Meyer and colleagues, with an educational lisa from [employer]. Review of Systems Const Denies chills and Denies fever(s) ENT Denies epistaxis and Denies nasal discharge Card Denies chest pain Resp Denies chest congestion, Denies cough and Denies hemoptysis GI Denies diarrhea and Denies nausea Skin/Breast Denies rash Neuro Reports no additional complaints Psych Reports no additional complaints Endo Reports no additional complaints Physical exam (Primary Care) Tobacco/Smoking Status: Tobacco use Status Tobacco use date assessed 08/05/23 11/03/23 08:58 Patient Tobacco Use Status Never used Tobacco 11/03/23 08:58 e-Cigarette/Vaping Use Never Used 11/03/23 08:58 Thrive Assessment: Date of Thrive Assessment Date Thrive assessed 08/05/23 11/03/23 08:58 Telehealth Telehealth Telehealth Platform: [employer] Location of provider rendering services: practice address Location of patient: address on file Patient Identification confirmed using: Name, : Yes Telehealth method: video Patient verbally consented to treatment: Yes Patient verbally consented to billing insurance company: Yes Patient informed of any privacy concerns related to visit: Yes Minutes spent on Phone/Video with Pt.: 14 Assessment and Plan Assessment & Plan (1) Left lumbar radiculitis: Code(s): M54.16 - Radiculopathy, lumbar region (2) Anxiety, generalized: Code(s): F41.1 - Generalized anxiety disorder Plan Patient is a 58-year-old female with a history of lumbar radiculitis, and chronic anxiety Patient have a disc protrusion lumbar area Patient gets tramadol 360 tablets every 90 days, she is taking 1 tablet every 6 hour as needed, refill sent Anxiety disorder: Patient wants to be switched to Lexapro, she was taking it in the past Patient says that the buspirone is not helping her anymore. Lexapro 10 mg tablets sent Patient is to take half a tablet for a week and then full tabl Medications: New escitalopram oxalate (Lexapro) 10 mg PO DAILY 90 tabs 0RF Refilled tramadol 50 mg PO Q6H 90 days 360 tabs 0RF Discontinued buspirone Discontinued Reason: Doctor's Order 5 mg PO .q am 30 days PRN 30 tabs 0RF anxiety Coding Level of Care Code Tele Est Pt Level 3 (09032) Diagnoses Left lumbar radiculitis M54.16 Anxiety, generalized F41.1
== END 2023-11-03 10:04 | disposition home or self-care (01) ==
LOC: HO.HMGC 08:28
PROVIDERS: PCP Internal Medicine; Visit Provider Internal Medicine
DX: M54.16 Radiculopathy, lumbar region (principal); F41.1 Generalized anxiety disorder
CPT/HCPCS: 99213

== ENCOUNTER 2024-02-03 13:17 | Outpatient (AMB) | payer BC, SELFPAY ==
[2024-02-03 13:20] VITALS: BP 120/78; PULSE 81; O2SAT 99; BMI 24.2
--- NOTE | 2024-02-03 13:20 | A.OFFPC_ITS ---
Vital Signs 02/03/24 13:20 Height 5 ft 6 in Weight 150 lb BMI 24.2 BP 120/78 Blood Pressure Location Rt brachial Position Sitting Pulse 81 Pulse Source Pulse Oximeter Pulse Oximetry (%) 99 Oxygen Delivery Method Room Air Intake Visit Reasons: Annual PE Allergies No Known Allergies Allergy (Verified 02/03/24 13:22) Medication List - Last Reconciled 02/03/24 by Aldair Sanchez MD escitalopram oxalate (Lexapro) 10 mg PO DAILY ferrous sulfate (Feosol) 325 mg PO DAILY tramadol 50 mg PO Q6H 90 days valacyclovir 500 mg PO DAILY Tobacco use date assessed: 02/03/24 Dental Screening Dental Screen Date: 08/05/23 HPI Annual PE HPI Details Chief Complaint Patient presents for a routine wellness examination and preventive health advice. Assessment and Plan 58-year-old female with a history of de nse breasts, and iron deficiency anemia presenting for a wellness physical examination. The patient has not completed recommended screenings, including mammogram and Pap smear. She has dense breasts noted in past mammography reports. The patient reports discontinuing antidepressants due to increased sensitivity . Iron supplementation is taken as needed. No current complaints of cold sores, constipation, or mood instability. The patient discontinued energy drinks resulting in improved blood pressure and weight loss. Preventive measures and vaccinations were discussed. 1. Essential Hypertension The patient has noted improvement in blood pressure following cessation of energy drinks. Continue monitoring blood pressure regularly. No prescription changes were made during the visit. 2. Iron Deficiency Anemia Continue using iron supplementation as needed based on symptoms and hemoglobin levels. Labs will be ordered today for iron studies and hemoglobin evaluations. 3. Dense Breasts The patient is encouraged to schedule her mammogram as routine screening. Discussed the importance of adhering to recommended imaging due to breast density. 4. Incomplete Preventive Screening The patient is advised to schedule overdue screenings including a Pap smear and colon cancer screening options like Cologuard or colonoscopy. Discuss benefits and limitations of Cologuard. Patient declined Cologuard as well Diagnostic results - CBC conducted in August of the previous year. New lab orders for hemoglobin and iron studies will be placed. Problem List - Dense Breasts - History of Cold Sores - Iron Deficiency Anemia - History of Antidepressant Sensitivity - spinal stenosi - pain management with tramadol[patient aware of side effects] Medications - Tramadol ? for pain management as need ed - Iron supplements - for symptomatic man agement of iron deficiency anemia Health Maintenance - Flu vaccination discussed and agreed u mary for administration during the visit. - Discussion of COVID and shingles vacci nations conducted with the plan to receive them at the pharmacy. - Mammogram, Pap smear, and colon cancer screening were advised for preventive health maintenance. - Adoption of healthier lifestyle choice s including cessation of energy drinks with noted health benefits. Patient Instructions - Schedule and attend a mammogram for br east cancer screening. - Arrange a Pap smear for cervical scree yvette. - Consider colon cancer screening option s of Cologuard or colonoscopy. - Maintain current practice of iron supp lement usage based on symptoms. - Receive flu vaccine today and plan to get COVID and shingles vaccines at the pharmacy. - Continue with healthy lifestyle change s that have helped improve blood pressure and support weight loss. - Monitor blood pressure regularly and r eport any significant changes. - Follow up on prescription frequency to avoid running out before next appointment. Follow-up 3 months physical exam 1 year [facility] Medical History Pain management Depression, major, recurrent Back muscle spasm Chronic lumbar pain Herpes labialis Anxiety, generalized Back pain Surgical History History of breast augmentation Family History Father No problems noted. Mother Breast cancer Maternal Grandfather Diabetes mellitus Maternal Grandmother No problems noted. Paternal Grandfather No problems noted. Paternal Grandmother No problems noted. Brother No problems noted. Brother No problems noted. Brother No problems noted. Brother No problems noted. Daughter No problems noted. Maternal Aunt Breast cancer Other Mental health disorder Substance use disorder Social History Housing: House Patient Tobacco Use Status: Never used Tobacco e-Cigarette/Vaping Use: Never Used service: No Current occupational status: employed Cognitive needs: No Hearing needs: No Vision needs: Yes Female Reproductive History Menstrual Age of Menarche: 14 Questionnaire PHQ-9 Over the last 2 weeks, how often have you been bothered by any of the following problems? 1. Little interest or pleasure in doing things: not at all 2. Feeling down, depressed, or hopeless: not at all 3. Trouble falling or staying asleep, or sleeping too much: not at all 4. Feeling tired or having little energy: not at all 5. Poor appetite or overeating: not at all 6. Feeling bad about yourself - or that you are a failure or have let yourself or your family down: not at all 7. Trouble concentrating on things, such as reading the newspaper or watching television: not at all 8. Moving or speaking so slowly that other people could have noticed. Or the opposite - being so fidgety or restless that you have been moving around a lot more than usual: not at all 9. Thoughts that you would be better off or of hurting yourself in some way: not at all Total score: 0 Source: Developed by Drs. Andrea Bernstein, Marilee Robles, Adriel Meyer and colleagues, with an educational lisa from [employer]. Thrive Questionnaire Date Thrive assessed: 02/03/24 I am a: Patient What is your living situation today?: I have a steady place to live Within the past 12 months, did the food you bought not last and you didn't have the money to get more?: I choose not to answer this question Within the past 12 months, did you worry whether your food would run out before you got money to buy more?: I choose not to answer this question Do you have trouble paying for medicines?: I choose not to answer this question Do you have trouble getting transportation to medical appointments?: I choose not to answer this question Do you have trouble paying your heating and electricity bill?: I choose not to answer this question Do you have trouble taking care of your child, family member or friend?: I choose not to answer this question Do you have trouble with day-to-day activities such as bathing, preparing meals, shopping, managing finances, etc.?: I choose not to answer this question Are you currently unemployed and looking for a job?: I choose not to answer this question Are you interested in more education?: I choose not to answer this question Please select the resources that you would like help with: None Currently or been in a relationship where the following occur: I choose not to answer THRIVE Score: 0 AUDIT C Alcohol Use Questionnaire (AUDIT-C) 1. How often do you have a drink containing alcohol?: Never Total Score: 0 RAFFAELE-7 AMB Questionnaire RAFFAELE-7 Date RAFFAELE - 7 assessed: 02/03/24 Feeling nervous, anxious, or on edge: 0 = Not at all Not being able to stop or control worryin = Not at all Worrying too much about different things: 0 = Not at all Trouble relaxin = Not at all Being so restless that it is hard to sit still: 0 = Not at all Becoming easily annoyed or irritable: 0 = Not at all Feeling afraid as if something awful might happen: 0 = Not at all Total RAFFAELE-7 score (0-4 normal; 5-9 mild; 10-14 moderate; 15-21 severe): 0 Source: Developed by Drs. Andrea Bernstein, Marilee Robles, Adriel Meyer and colleagues, with an educational lisa from [employer]. Review of Systems Const Denies chills, Denies fever(s) and Denies headache(s) Eyes Denies blurry vision ENT Denies headache(s), Denies nasal discharge, Denies nasal obstruction, Denies odynophagia and Denies sinus pain Card Denies chest pain at rest and Denies chest pain with activity Resp Denies cough and Denies hemoptysis GI Denies diarrhea, Denies odynophagia, Denies vomiting and Denies hematemesis Reports as per HPI Musc Denies abnormal gait Skin/Breast Reports as per HPI Neuro Denies Neuro-related abnormal movements, Denies Abnormal speech present, Denies abnormal gait, Denies headache(s) and Denies Sensory deficit (Neuro) Psych Denies mood swings and Denies paranoia Endo Reports as per HPI Markus/Lymph Reports as per HPI Aller/Immun Reports as per HPI Physical exam (Primary Care) Vital Signs: Last Vital Signs Pulse 81 02/03/24 13:20 BP 120/78 02/03/24 13:20 Pulse Ox 99 02/03/24 13:20 Oxygen Delivery Method Room Air 02/03/24 13:20 BMI result Body Mass Index 24.2 Tobacco/Smoking Status: Tobacco use Status Tobacco use date assessed 02/03/24 02/03/24 13:24 Patient Tobacco Use Status Never used Tobacco 02/03/24 13:24 e-Cigarette/Vaping Use Never Used 02/03/24 13:24 PHQ-9: PHQ-9 Score PHQ-9: Total score 0 02/03/24 13:51 Thrive Assessment: Date of Thrive Assessment Date Thrive assessed 02/03/24 02/03/24 13:24 Currently or been in a relationship where the following occur: I choose not to answer Const General: cooperative, comfortable and no acute distress Orientation/consciousness: patient oriented x3 HENMT Head: Yes normocephalic and Yes atraumatic Eyes General: appearance normal, both eyes and all related structures Pupils: Equal, round and reactive pupils present EOM: EOMs intact bilaterally Neck Neck: Yes supple and No lymphadenopathy Thyroid: Thyroid normal Lymphatic: no lymphadenopathy noted Chest Breast/axilla palpation: normal palpation of the breasts Resp Effort & Inspection: normal respiratory effort and able to speak in complete sentences Auscultation: clear to auscultation bilaterally Cardio Heart sounds: S1 normal heart sound present and S2 normal heart sound present GI Palpation (GI): Soft to palpation and nontender Auscultation: normal bowel sounds General: Yes no CVA tenderness Back/Spine/Pelvis Back: no CVA tenderness Skin General skin exam: elasticity normal and turgor normal Neuro General: patient oriented x3 and gait normal Cranial nerves: Yes Equal, round and reactive pupils present Speech: No Abnormal speech present Sensory Exam: No Sensory deficit (Neuro) Coordination: tandem gait normal and Romberg test negative Extrem General: Yes normal exam except as noted and No edema Office Procedures Flu Questionnaire Does the patient have a severe egg allergy?: No Does the patient have severe life threatening allergies?: No Does the patient have a fever or illness today?: No Has the patient ever had Guillain-Weare Syndrome?: No Has the patient ever had any past reaction to a flu shot?: No Immunizations Fluarix Triv [id number] (PF) 45 mcg (15 mcg x 3)/0.5 mL IM syringe Performing Provider: Aldair Sanchez MD Performing Location: [facility] [place] [facility] Administered by: Allan Vasques CMA on 02/03/24 13:51 Dose Route Admin Location Dispensed Lot Number Expiration Date [facility] [employer] 0.5 mL IM Left Deltoid 0.5 mL [id number] 08/20/24 [id number] [place] VIS Given Date VIS Provided VIS Publication Date 02/03/24 Single Vaccine 20 Eligibility Eligibility Date Funding Source Not [facility] Eligible 02/03/24 Private Coding Level of Care Code Est Pt Prev Care 40-64y([id number]) Diagnoses Adult general medical examination Z00.00 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 Colonoscopy refused Z53.20 Dense breasts R92.30 Chronic bilateral low back pain without sciatica M54.50; G89.29 Back pain laterality: bilateral Sciatica presence: without sciatica Assessment & Plan Assessment & Plan (1) Adult general medical examination: Code(s): Z00.00 - Encounter for general adult medical examination without abnormal findings Category: Medical (2) Moderate tramadol dependence: Code(s): F11.20 - Opioid dependence, uncomplicated Category: Medical (3) Colonoscopy refused: Code(s): Z53.20 - Procedure and treatment not carried out because of patient's decision for unspecified reasons Category: Medical (4) Dense breasts: Code(s): R92.30 - Dense breasts, unspecified Category: Medical (5) Chronic lumbar pain: Code(s): M54.5 - Low back pain; G89.29 - Other chronic pain Category: Medical Qualifiers: Back pain laterality: bilateral Sciatica presence: without sciatica Qualified Code(s): M54.50 - Low back pain, unspecified; G89.29 - Other chronic pain Plan Chief Complaint Patient presents for a routine wellness examination and preventive health advice. Assessment and Plan 58-year-old female with a history of dense breasts, and iron deficiency anemia presenting for a wellness physical examination. The patient has not completed recommended screenings, including mammogram and Pap smear. She has dense breasts noted in past mammography reports. The patient reports discontinuing antidepressants due to increased sensitivity . Iron supplementation is taken as needed. No current complaints of cold sores, constipation, or mood instability. The patient discontinued energy drinks resulting in improved blood pressure and weight loss. Preventive measures and vaccinations were discussed. 1. Essential Hypertension The patient has noted improvement in blood pressure following cessation of energy drinks. Continue monitoring blood pressure regularly. No prescription changes were made during the visit. 2. Iron Deficiency Anemia Continue using iron supplementation as needed based on symptoms and hemoglobin levels. Labs will be ordered today for iron studies and hemoglobin evaluations. 3. Dense Breasts The patient is encouraged to schedule her mammogram as routine screening. Discussed the importance of adhering to recommended imaging due to breast density. 4. Incomplete Preventive Screening The patient is advised to schedule overdue screenings including a Pap smear and colon cancer screening options like Cologuard or colonoscopy. Discuss benefits and limitations of Cologuard. Patient declined Cologuard as well Diagnostic results - CBC conducted in August of the previous year. New lab orders for hemoglobin and iron studies will be placed. Problem List - Dense Breasts - History of Cold Sores - Iron Deficiency Anemia - History of Antidepressant Sensitivity - spinal stenosi - pain management with tramadol[patient aware of side effects] Medications - Tramadol ? for pain management as needed - Iron supplements - for symptomatic management of iron deficiency anemia Health Maintenance - Flu vaccination discussed and agreed upon for administration during the visit. - Discussion of COVID and shingles vaccinations conducted with the plan to receive them at the pharmacy. - Mammogram, Pap smear, and colon cancer screening were advised for preventive health maintenance. - Adoption of healthier lifestyle choices including cessation of energy drinks with noted health benefits. Patient Instructions - Schedule and attend a mammogram for breast cancer screening. - Arrange a Pap smear for cervical screening. - Consider colon cancer screening options of Cologuard or colonoscopy. - Maintain current practice of iron supplement usage based on symptoms. - Receive flu vaccine today and plan to get COVID and shingles vaccines at the pharmacy. - Continue with healthy lifestyle changes that have helped improve blood pressure and support weight loss. - Monitor blood pressure regularly and report any significant changes. - Follow up on prescription frequency to avoid running out before next appointment. Follow-up 3 months physical exam 1 year Orders: Orders Complete Blood Count Auto Diff Today F11.20 - Opioid dependence, uncomplicated, M54.16 - Radiculopathy, lumbar region, Z00.00 - Encounter for general adult medical examination without abnormal findings TSH reflex Free T4 Today F11.20 - Opioid dependence, uncomplicated, M54.16 - Radiculopathy, lumbar region, Z00.00 - Encounter for general adult medical examination without abnormal findings Ferritin Today Z00.00 - Encounter for general adult medical examination without abnormal findings Influenza [id number] Immunization Today Z23 - Encounter for immunization Comprehensive Met. Panel Today F11.20 - Opioid dependence, uncomplicated, M54.16 - Radiculopathy, lumbar region, Z00.00 - Encounter for general adult medical examination without abnormal findings LDL Cholesterol Direct Today F11.20 - Opioid dependence, uncomplicated, M54.16 - Radiculopathy, lumbar region, Z00.00 - Encounter for general adult medical examination without abnormal findings Medications: Refilled tramadol 50 mg PO Q6H 360 tabs 0RF 90 days Discontinued escitalopram oxalate (Lexapro) Discontinued Reason: Change Referral Type 10 mg PO DAILY 90 tabs 0RF
== END 2024-02-03 13:59 | disposition home or self-care (01) ==
PROVIDERS: PCP Internal Medicine; Visit Provider Internal Medicine
DX: Z00.00 Encounter for general adult medical examination without abnormal findings (principal); F11.20 Opioid dependence, uncomplicated; Z53.20 Procedure and treatment not carried out because of patient's decision for unspecified reasons; R92.30 Dense breasts, unspecified; M54.50 Low back pain, unspecified; G89.29 Other chronic pain; M54.16 Radiculopathy, lumbar region; Z23 Encounter for immunization

== ENCOUNTER 2024-02-03 13:17 | Outpatient (REF) | payer BC, SELFPAY ==
[2024-02-03 16:05] LABS: MANUAL DIFF FLAG NO
[2024-02-03 16:12] LABS: Basophils Absolute Auto 0.1 X10*3/uL (0.0-0.2); Basophils Percent Auto 0.9 % (0-2); Eosinophils Absolute Auto 0.2 X10*3/uL (0.0-0.4); Eosinophils Percent Auto 2.3 % (0-4); Hematocrit 40.6 % (37.0-47.0); Hemoglobin 13.5 g/dl (12.0-16.0); Imm Gran Abs Auto 0.02 X10*3/uL (0.00-0.03); Imm Gran Pct Auto 0.3 % (0.0-0.4); Lymphocytes Absolute Auto 1.6 X10*3/uL (1.2-4.9); Lymphocytes Percent Auto 20.9 % (20-40); Mean Corpuscular HGB Conc 33.3 g/dl (31.0-35.0); Mean Corpuscular Hemoglobin 28.3 pg (27.0-33.0); Mean Corpuscular Volume 85.1 fL (80.0-98.0); Mean Platelet Volume 10.3 fL (9.4-12.3); Monocytes Absolute Auto 0.7 X10*3/uL (0.1-1.2); Monocytes Percent Auto 8.6 % (2-11); Neutrophils Absolute Auto 5.1 x10*3/uL (2.0-8.3); Platelet Count 270 X10*3/uL (160-400); Red Blood Count 4.77 X10*6/uL (4.20-5.50); Red Cell Distribution Width 13.1 % (11.0-16.0); White Blood Count 7.6 X10*3/uL (4.8-10.8)
[2024-02-03 16:38] LABS: Alanine Aminotransferase 24 U/L (0-31); Albumin Level 4.1 g/dL (3.5-5.0); Alkaline Phosphatase 95 U/L (39-117); Anion Gap 12 (12-20); Aspartate Amino Transferase 23 U/L (5-31); Bilirubin Total 0.2 mg/dL (0.0-1.0); Blood Urea Nitrogen 24 mg/dL (9-16); Calcium 9.5 mg/dL (8.4-10.2); Carbon Dioxide 26 mmol/L (22-29); Chloride 106 mmol/L (96-108); Estimated Glomerular Filt Rate > 60; Glucose Random 95 mg/dL (60-115); Sodium 140 mmol/L (135-145); Total Protein 6.8 g/dL (6.5-8.0)
[2024-02-03 16:46] LABS: Ferritin 111 ng/mL (10-250); TSH reflex Free T4 1.19 uIU/mL (0.32-4.0)
[2024-02-04 15:43] LABS: LDL Cholesterol Direct 85 mg/dL (<100)
== END 2024-02-03 13:18 | disposition home or self-care (01) ==
LOC: HO.HMGCLDS 13:17
PROVIDERS: PCP Internal Medicine; Visit Provider Internal Medicine
DX: Z00.00 Encounter for general adult medical examination without abnormal findings (principal); F11.20 Opioid dependence, uncomplicated; M54.16 Radiculopathy, lumbar region; I10 Essential (primary) hypertension; Z23 Encounter for immunization; R92.30 Dense breasts, unspecified; D50.9 Iron deficiency anemia, unspecified
CPT/HCPCS: 36415; 80053; 82728; 83721; 84443; 85025; 90471; 90656

== ENCOUNTER 2024-05-10 08:56 | Outpatient (AMB) | payer BC, SELFPAY ==
--- NOTE | 2024-05-10 09:00 | A.OFFPC_ITS ---
Intake Visit Reasons: 3 months follow up Allergies No Known Allergies Allergy (Verified 05/10/24 09:00) Medication List - Last Reconciled 05/10/24 by Aldair Sanchez MD ferrous sulfate (Feosol) 325 mg PO DAILY tramadol 50 mg PO Q6H 90 days valacyclovir 500 mg PO DAILY Tobacco use date assessed: 05/10/24 Dental Screening Dental Screen Date: 08/05/23 Did you have a dental visit in the last 12 months?: Yes Did you have a dental problem in the last 6 months where you did not have access to dental care?: No Was dental information given to patient?: Patient has dentist HPI 3 months follow up HPI Details History The patient is a 58-year-old female presenting with a request for medication refill. - The patient takes Tramadol on a six-ho urly basis and is seeking a refill. - Reports inconsistent use of iron suppl ements, taking them more frequently than advised. - Utilizes lysine daily, attributing it to symptomatic improvement, and engages in as-needed administration of valsacyclovir during prodromal signs of viral flare-ups. - A review of [facility] laboratory evalua tions, which showed normal renal and hepatic function, appropriate cholesterol and thyroid levels, and no anemia, was conducted. - Discussion regarding modifying her [facility] office appointment to a virtual consultation was made, with appropriate changes to be scheduled. Problem List - Valsacyclovir use for prophylaxis of v iral infection - Prescription refill for Tramadol - Non-adherence to recommended iron supp lementation Patient Instructions - Continue taking Tramadol every six dawna rs as needed. for back pain - Maintain daily use of lysine and take valsacyclovir at the first sign of a flare-up. - Ensure to contact the office to confir m the change of the August 07 appointment to a virtual one on August 09.as per patients request Review of Systems - General: No fever no chills - Neurological: No headaches no dizziness - Ear nose throat: No sore throat no hearing difficulty no ear pain - Cardiovascular: No syncope, no chest pain, no palpitations - Gastrointestinal: No nausea vomiting or diarrhea - Endocrine: No polyuria polydipsia no heat intolerance - Genitourinary: No dysuria , no blood in urine [facility] Medical History Pain management Depression, major, recurrent Back muscle spasm Chronic lumbar pain Herpes labialis Anxiety, generalized Back pain Surgical History History of breast augmentation Family History Father No problems noted. Mother Breast cancer Maternal Grandfather Diabetes mellitus Maternal Grandmother No problems noted. Paternal Grandfather No problems noted. Paternal Grandmother No problems noted. Brother No problems noted. Brother No problems noted. Brother No problems noted. Brother No problems noted. Daughter No problems noted. Maternal Aunt Breast cancer Other Mental health disorder Substance use disorder Social History Housing: House Patient Tobacco Use Status: Never used Tobacco e-Cigarette/Vaping Use: Never Used service: No Current occupational status: employed Cognitive needs: No Hearing needs: No Vision needs: Yes Female Reproductive History Menstrual Age of Menarche: 14 Questionnaire Thrive Questionnaire Date Thrive assessed: 05/10/24 I am a: Patient What is your living situation today?: I have a steady place to live Within the past 12 months, did the food you bought not last and you didn't have the money to get more?: I choose not to answer this question Within the past 12 months, did you worry whether your food would run out before you got money to buy more?: I choose not to answer this question Do you have trouble paying for medicines?: I choose not to answer this question Do you have trouble getting transportation to medical appointments?: I choose not to answer this question Do you have trouble paying your heating and electricity bill?: I choose not to answer this question Do you have trouble taking care of your child, family member or friend?: I choose not to answer this question Do you have trouble with day-to-day activities such as bathing, preparing meals, shopping, managing finances, etc.?: I choose not to answer this question Are you currently unemployed and looking for a job?: I choose not to answer this question Are you interested in more education?: I choose not to answer this question Please select the resources that you would like help with: None Currently or been in a relationship where the following occur: I choose not to answer THRIVE Score: 0 AUDIT C Alcohol Use Questionnaire (AUDIT-C) 1. How often do you have a drink containing alcohol?: Never 3. How often do you have six or more drinks on one occasion?: Never Total Score: 0 Score Reviewed/Action Taken: Yes RAFFAELE-7 AMB Questionnaire RAFFAELE-7 Date RAFFAELE - 7 assessed: 05/10/24 Feeling nervous, anxious, or on edge: 0 = Not at all Not being able to stop or control worryin = Not at all Worrying too much about different things: 0 = Not at all Trouble relaxin = Not at all Being so restless that it is hard to sit still: 0 = Not at all Becoming easily annoyed or irritable: 0 = Not at all Feeling afraid as if something awful might happen: 0 = Not at all Total RAFFAELE-7 score (0-4 normal; 5-9 mild; 10-14 moderate; 15-21 severe): 0 Source: Developed by Drs. Andrea Bernstein, Marilee Robles, Adriel Meyer and colleagues, with an educational lisa from [employer]. RAFFAELE-7 Assessment Billing RAFFAELE-7 Assessment Tool: RAFFAELE-7 Assessment 33293 Physical exam (Primary Care) Tobacco/Smoking Status: Tobacco use Status Tobacco use date assessed 05/10/24 05/10/24 09:01 Patient Tobacco Use Status Never used Tobacco 05/10/24 09:01 e-Cigarette/Vaping Use Never Used 05/10/24 09:01 Thrive Assessment: Date of Thrive Assessment Date Thrive assessed 05/10/24 05/10/24 09:01 Currently or been in a relationship where the following occur: I choose not to answer Telehealth Telehealth Telehealth Platform: [facility] Location of provider rendering services: practice address Location of patient: address on file Patient Identification confirmed using: Name, : Yes Telehealth method: video Patient verbally consented to treatment: Yes Patient verbally consented to billing insurance company: Yes Patient informed of any privacy concerns related to visit: Yes Minutes spent on Phone/Video with Pt.: 13 Coding Level of Care Code Tele Est Pt Level 3 (15528) Diagnoses Chronic bilateral low back pain without sciatica M54.50; G89.29 Back pain laterality: bilateral Sciatica presence: without sciatica 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 Additional Codes RAFFAELE-7 Assessment Billing - RAFFAELE-7 Assessment Tool: RAFFAELE-7 Assessment 10619 ([id number]) Assessment & Plan Assessment & Plan (1) Chronic lumbar pain: Code(s): M54.5 - Low back pain; G89.29 - Other chronic pain Category: Medical Qualifiers: Back pain laterality: bilateral Sciatica presence: without sciatica Qualified Code(s): M54.50 - Low back pain, unspecified; G89.29 - Other chronic pain (2) Moderate tramadol dependence: Code(s): F11.20 - Opioid dependence, uncomplicated Category: Medical Plan History The patient is a 58-year-old female presenting with a request for medication refill. - The patient takes Tramadol on a six-hourly basis and is seeking a refill. - Reports inconsistent use of iron supplements, taking them more frequently than advised. - Utilizes lysine daily, attributing it to symptomatic improvement, and engages in as-needed administration of valsacyclovir during prodromal signs of viral flare-ups. - A review of January laboratory evaluations, which showed normal renal and hepatic function, appropriate cholesterol and thyroid levels, and no anemia, was conducted. - Discussion regarding modifying her upcoming office appointment to a virtual consultation was made, with appropriate changes to be scheduled. Problem List - Valsacyclovir use for prophylaxis of viral infection - Prescription refill for Tramadol - Non-adherence to recommended iron supplementation Patient Instructions - Continue taking Tramadol every six hours as needed. for back pain - Maintain daily use of lysine and take valsacyclovir at the first sign of a flare-up. - Ensure to contact the office to confirm the change of the August 07 appointment to a virtual one on August 09.as per patients request Medications: Refilled tramadol 50 mg PO Q6H 90 days 360 tabs 0RF
== END 2024-05-10 10:26 | disposition home or self-care (01) ==
LOC: HO.HMCC 08:56
PROVIDERS: PCP Internal Medicine; Visit Provider Internal Medicine
DX: M54.50 Low back pain, unspecified (principal); G89.29 Other chronic pain; F11.20 Opioid dependence, uncomplicated

== ENCOUNTER → 2024-05-10 08:56 | Outpatient (BNVA) | payer BC, SELFPAY | PROVIDERS: PCP Internal Medicine; Visit Provider Internal Medicine | DX: G89.29 Other chronic pain (principal); M54.50 Low back pain, unspecified; F11.20 Opioid dependence, uncomplicated | CPT/HCPCS: 96127 ==

== ENCOUNTER 2024-08-02 08:34 | Outpatient (AMB) | payer BC, SELFPAY ==
--- NOTE | 2024-08-02 08:38 | A.OFFPC_ITS ---
Intake Visit Reasons: 3 months follow up Allergies No Known Allergies Allergy (Verified 05/10/24 09:00) Medication List - Last Reconciled 08/02/24 by Aldair Sanchez MD ferrous sulfate (Feosol) 325 mg PO DAILY tramadol 50 mg PO Q6H 90 days valacyclovir 500 mg PO DAILY Tobacco use date assessed: 05/10/24 Dental Screening Dental Screen Date: 08/05/23 HPI 3 months follow up HPI Details History - The patient is a 59-year-old female pr esenting with the need for a medication refill and follow-up for chronic back pain. - Chronic back pain: The patient reports managing the pain with tramadol, taken every six hours. She states there have been no flare-ups, and the condition remains stable since her last appointment. - Cold sores: The patient denies any fla re-up of cold sores since the last visi t. - Fatigue: The patient reports experienc ing less fatigue when occasionally taking iron supplements, approximately two or three times a week. Medical History: - Chronic back pain - History of cold sores - Fatigue, managed with occasional iron supplementation Medications: - Tramadol for chronic back pain, taken every six hours - Iron supplements for fatigue, taken tw o to three times a week Diagnostic Results: - Labs: Complete Blood Count (CBC) yehuda l as of January, including normal red blood cell count, and white cell count. - Metabolic profile: Normal as of [facility] er, with electrolytes, kidney function, liver enzymes, and cholesterol all within normal range. - Thyroid function tests: Normal Problem List - Chronic Back Pain - Cold Sores - Fatigue Patient Instructions - Continue taking tramadol every six dawna rs for back pain management. - Continue iron supplementation two to t hree times a week if it helps alleviate fatigue. - Follow up with the next appointment sc heduled for November 08. Review of Systems - Musculoskeletal: Reports chronic back pain, stable with medication. - Integumentary: Denies any current flar e-up of cold sores. - General: Reports occasional fatigue, i mproved with iron supplementation. No fever no chills - Neurological: No headaches no dizziness - Ear nose throat: No sore throat no hearing difficulty no ear pain - Cardiovascular: No syncope, no chest pain, no palpitations - Gastrointestinal: No nausea vomiting or diarrhea r [facility] Medical History Pain management Depression, major, recurrent Back muscle spasm Chronic lumbar pain Herpes labialis Anxiety, generalized Back pain Surgical History History of breast augmentation Family History Father No problems noted. Mother Breast cancer Maternal Grandfather Diabetes mellitus Maternal Grandmother No problems noted. Paternal Grandfather No problems noted. Paternal Grandmother No problems noted. Brother No problems noted. Brother No problems noted. Brother No problems noted. Brother No problems noted. Daughter No problems noted. Maternal Aunt Breast cancer Other Mental health disorder Substance use disorder Social History Housing: House Patient Tobacco Use Status: Never used Tobacco e-Cigarette/Vaping Use: Never Used service: No Current occupational status: employed Cognitive needs: No Hearing needs: No Vision needs: Yes Female Reproductive History Menstrual Age of Menarche: 14 Questionnaire Thrive Questionnaire Date Thrive assessed: 05/10/24 RAFFAELE-7 AMB Questionnaire RAFFAELE-7 Date RAFFAELE - 7 assessed: 05/10/24 Source: Developed by Drs. Andrea Bernstein, Marilee Robles, Adriel Meyer and colleagues, with an educational lisa from [employer]. Physical exam (Primary Care) Tobacco/Smoking Status: Tobacco use Status Tobacco use date assessed 05/10/24 05/10/24 09:01 Patient Tobacco Use Status Never used Tobacco 05/10/24 09:01 e-Cigarette/Vaping Use Never Used 05/10/24 09:01 Thrive Assessment: Date of Thrive Assessment Date Thrive assessed 05/10/24 05/10/24 09:01 Telehealth Telehealth Telehealth Platform: [facility] Location of provider rendering services: practice address Location of patient: address on file Patient Identification confirmed using: Name, : Yes Telehealth method: video Patient verbally consented to treatment: Yes Patient verbally consented to billing insurance company: Yes Patient informed of any privacy concerns related to visit: Yes Minutes spent on Phone/Video with Pt.: 13 Coding Level of Care Code Tele Est Pt Level 3 (41459) Diagnoses Chronic bilateral low back pain without sciatica M54.50; G89.29 Back pain laterality: bilateral Sciatica presence: without sciatica 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 - Chronic back pain: The patient reports managing the pain with tramadol, taken every six hours. She states there have been no flare-ups, and the condition remains stable since her last appointment. - Cold sores: The patient denies any flare-up of cold sores since the last visit. - Fatigue: The patient reports experiencing less fatigue when occasionally taking iron supplements, approximately two or three times a week. Medical History: - Chronic back pain - History of cold sores - Fatigue, managed with occasional iron supplementation Medications: - Tramadol for chronic back pain, taken every six hours - Iron supplements for fatigue, taken two to three times a week Diagnostic Results: - Labs: Complete Blood Count (CBC) normal as of January, including normal red blood cell count, and white cell count. - Metabolic profile: Normal as of January, with electrolytes, kidney function, liver enzymes, and cholesterol all within normal range. - Thyroid function tests: Normal Problem List - Chronic Back Pain - Cold Sores - Fatigue Patient Instructions - Continue taking tramadol every six hours for back pain management. - Continue iron supplementation two to three times a week if it helps alleviate fatigue. - Follow up with the next appointment scheduled for November 08. r Medications: Refilled tramadol 50 mg PO Q6H 90 days 360 tabs 0RF
== END 2024-08-02 09:02 | disposition home or self-care (01) ==
LOC: HO.HMCC 08:34
PROVIDERS: PCP Internal Medicine; Visit Provider Internal Medicine
DX: M54.50 Low back pain, unspecified (principal); G89.29 Other chronic pain; F11.20 Opioid dependence, uncomplicated

== ENCOUNTER → 2024-08-02 08:34 | Outpatient (BNVA) | payer BC, SELFPAY | PROVIDERS: PCP Internal Medicine; Visit Provider Internal Medicine ==

== ENCOUNTER 2024-11-08 06:33 | Outpatient (AMB) | payer BC, SELFPAY ==
--- NOTE | 2024-11-08 10:02 | A.OFFPC_ITS ---
Intake Visit Reasons: 3 months follow up Allergies No Known Allergies Allergy (Verified 05/10/24 09:00) Medication List - Last Reconciled 11/08/24 by Aldair Sanchez MD ferrous sulfate (Feosol) 325 mg PO DAILY tramadol 50 mg PO Q6H 90 days valacyclovir 500 mg PO DAILY Tobacco use date assessed: 05/10/24 Dental Screening Dental Screen Date: 08/05/23 HPI 3 months follow up HPI Details History - The patient is a 59-year-old female pr esenting with the need for a medication refill and follow-up for chronic back pain. - Chronic back pain: The patient reports managing the pain with tramadol, taken every six hours. She states there have been no flare-ups, and the condition remains stable since her last appointment. she does try to cut down on dose every now and then so she wont develop the tolerance - managing anxiety and depression with H olistic ways Medications: - Tramadol for chronic back pain, taken every six hours - Valacyclovir for cold sores Patient Instructions - Continue taking tramadol - return in Dec for med refill and PE - labs are needed fasting before visit , order placed [facility] Medical History Pain management Depression, major, recurrent Back muscle spasm Chronic lumbar pain Herpes labialis Anxiety, generalized Back pain Surgical History History of breast augmentation Family History Father No problems noted. Mother Breast cancer Maternal Grandfather Diabetes mellitus Maternal Grandmother No problems noted. Paternal Grandfather No problems noted. Paternal Grandmother No problems noted. Brother No problems noted. Brother No problems noted. Brother No problems noted. Brother No problems noted. Daughter No problems noted. Maternal Aunt Breast cancer Other Mental health disorder Substance use disorder Social History Housing: House Patient Tobacco Use Status: Never used Tobacco e-Cigarette/Vaping Use: Never Used service: No Current occupational status: employed Cognitive needs: No Hearing needs: No Vision needs: Yes Female Reproductive History Menstrual Age of Menarche: 14 Questionnaire Thrive Questionnaire Date Thrive assessed: 05/10/24 I am a: Patient What is your living situation today?: I have a steady place to live Within the past 12 months, did the food you bought not last and you didn't have the money to get more?: I choose not to answer this question Within the past 12 months, did you worry whether your food would run out before you got money to buy more?: I choose not to answer this question Do you have trouble paying for medicines?: I choose not to answer this question Do you have trouble getting transportation to medical appointments?: I choose not to answer this question Do you have trouble paying your heating and electricity bill?: I choose not to answer this question Do you have trouble taking care of your child, family member or friend?: I choose not to answer this question Do you have trouble with day-to-day activities such as bathing, preparing meals, shopping, managing finances, etc.?: I choose not to answer this question Are you currently unemployed and looking for a job?: I choose not to answer this question Are you interested in more education?: I choose not to answer this question Please select the resources that you would like help with: None Currently or been in a relationship where the following occur: I choose not to answer THRIVE Score: 0 RAFFAELE-7 AMB Questionnaire RAFFAELE-7 Date RAFFAELE - 7 assessed: 05/10/24 Source: Developed by Drs. Andrea Bernstein, Marilee Robles, Adriel Meyer and colleagues, with an educational lisa from [employer]. Physical exam (Primary Care) Tobacco/Smoking Status: Tobacco use Status Tobacco use date assessed 05/10/24 08/02/24 08:41 Patient Tobacco Use Status Never used Tobacco 08/02/24 08:41 e-Cigarette/Vaping Use Never Used 08/02/24 08:41 Thrive Assessment: Date of Thrive Assessment Date Thrive assessed 05/10/24 08/02/24 08:41 Currently or been in a relationship where the following occur: I choose not to answer Telehealth Telehealth Telehealth Platform: [employer] Location of provider rendering services: practice address Location of patient: address on file Patient Identification confirmed using: Name, : Yes Telehealth method: video Patient verbally consented to treatment: Yes Patient verbally consented to billing insurance company: Yes Patient informed of any privacy concerns related to visit: Yes Minutes spent on Phone/Video with Pt.: 13 Coding Level of Care Code Tele Est Pt Level 3 (69351) Diagnoses Left lumbar radiculitis M54.16 Chronic bilateral low back pain without sciatica M54.50; G89.29 Back pain laterality: bilateral Sciatica presence: without sciatica 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 Assessment & Plan Assessment & Plan (1) Left lumbar radiculitis: Code(s): M54.16 - Radiculopathy, lumbar region Category: Medical (2) Chronic lumbar pain: Code(s): M54.5 - Low back pain; G89.29 - Other chronic pain Category: Medical Qualifiers: Back pain laterality: bilateral Sciatica presence: without sciatica Qualified Code(s): M54.50 - Low back pain, unspecified; G89.29 - Other chronic pain (3) Moderate tramadol dependence: Code(s): F11.20 - Opioid dependence, uncomplicated Category: Medical Plan History - The patient is a 59-year-old female presenting with the need for a medication refill and follow-up for chronic back pain. - Chronic back pain: The patient reports managing the pain with tramadol, taken every six hours. She states there have been no flare-ups, and the condition remains stable since her last appointment. she does try to cut down on dose every now and then so she wont develop the tolerance - managing anxiety and depression with Holistic ways Medications: - Tramadol for chronic back pain, taken every six hours - Valacyclovir for cold sores Patient Instructions - Continue taking tramadol - return in Dec for med refill and PE - labs are needed fasting before visit , order placed Orders: Orders Complete Blood Count Auto Diff Today F11.20 - Opioid dependence, uncomplicated, G89.29 - Other chronic pain, M54.16 - Radiculopathy, lumbar region, M54.50 - Low back pain, unspecified Comprehensive [place]. Panel Fast Today F11.20 - Opioid dependence, uncomplicated, G89.29 - Other chronic pain, M54.16 - Radiculopathy, lumbar region, M54.50 - Low back pain, unspecified Ferritin Today R53.83 - Other fatigue Lipid Panel Today F11.20 - Opioid dependence, uncomplicated, G89.29 - Other chronic pain, M54.16 - Radiculopathy, lumbar region, M54.50 - Low back pain, unspecified TSH reflex Free T4 Today F11.20 - Opioid dependence, uncomplicated, G89.29 - Other chronic pain, M54.16 - Radiculopathy, lumbar region, M54.50 - Low back pain, unspecified Vitamin D 25-OH (D2 and D3) Today F11.20 - Opioid dependence, uncomplicated, G89.29 - Other chronic pain, M54.16 - Radiculopathy, lumbar region, M54.50 - Low back pain, unspecified Medications: Refilled tramadol 50 mg PO Q6H 360 tabs 0RF 90 days
== END 2024-11-08 11:59 | disposition home or self-care (01) ==
LOC: HO.HMCC 06:34
PROVIDERS: PCP Internal Medicine; Visit Provider Internal Medicine
DX: M54.16 Radiculopathy, lumbar region (principal); M54.50 Low back pain, unspecified; G89.29 Other chronic pain; F11.20 Opioid dependence, uncomplicated